=== PATIENT | male | born 1955 | race Caucasian/White ===

== ENCOUNTER 2019-04-02 12:12 | Inpatient (IN) | payer OTHER ==
[2019-04-02 12:40] VITALS: BMI 26.4
[2019-04-02] MEDS ORDERED: methylPREDNISolone SOD SUCC 125 MG/2 ML VIAL IVP ONE (12:55)
[2019-04-02] MEDS ORDERED: ACETAMINOPHEN 500 MG TABLET PO PRN (12:58)
[2019-04-02] MEDS ORDERED: AZITHROMYCIN 500 MG in 0.9 % SODIUM CHLORIDE 250 ML IV SCH (13:00)
--- NOTE | 2019-04-02 13:01 | History and Physical Report ---
History of Present Illnes - History of Present Illness Reason for Visit: dyspnea History of Present Illness: 63yo male with 4-5 day history of breathing difficulties. Having some SOB, wheezing, coughing productive of yellow phlegm, no blood noted. No chest pain noted. patient stated he has a mild sore throat secondary to coffee. Patient is had some mild clear nasal drainage noted. Patient has had some mild low-grade fever but no chills appreciated. Patient does have a history of COPD. Patient did is been having increasing shortness of breath dyspnea related to his illness. Patient stated he did quit smoking approximately three weeks ago. Patient has approximately a 50 pack a history of smoking. Patient was seen in clinic and not able to get SAO2 > 88%. Admitted for further care and treatment. - Past Medical History Pulmonary: COPD - Past Surgical History Past Surgical History: Other (ORIF right hand fracture) - Past Family History Father Family History: (unkown age or cause) Mother Family History: (COPD, asthma) Brother 1 Family History: (COPD) Brother 2 Family History: (suicide) - Past Social History Smoke: # pack years (50), Quit (quit 3 weeks ag) Alcohol: None Drugs: None Lives: With Family Domestic Violence: Negative - Health Maintenance Health Maintenance: denies: Influenza Vaccine, Pneumococcal Vaccine, Colonoscopy Influenza Vaccine: No Pneumonia Vaccine: No Resuscitation Status: Resusciation Status Resuscitation Status Full Code - Unable to Obtain History Unable to Obtain: No Review of Systems - Review of Systems Constitutional: Fever, Chills. negative: Sweats, Weakness Eyes: negative: pain, vision change ENT: Nose Congestion (mild). negative: Ear Pain, Ear Discharge, Nose Pain, Nose Discharge, Mouth Pain, Mouth Swelling Respiratory: Cough, Shortness of Breath, SOB with Excertion, Sputum (yellow). negative: Hemoptysis, Pleuritic Pain Cardiovascular: negative: Chest Pain, Palpitations, Orthopnea, Paroxysmal Noc. Dyspnea Gastrointestinal: negative: Nausea, Vomiting, Abdominal Pain, Diarrhea, Constipation, Melena Genitourinary: negative: Dysuria, Frequency, Incontinence, Hematuria Musculoskeletal: negative: Neck Pain, Back Pain Skin: negative: Rash Neurological: negative: Weakness, Numbness, Incoordination, Change in Speech, Confusion, Seizures - Medications/Allergies Allergies/Adverse Reactions: Allergies Allergy/AdvReac Type Severity Reaction Status Date / Time No Known Drug Allergies Allergy Verified 04/02/19 22:09 Current Inpatient Medications: Current Inpatient Medications Acetaminophen (Tylenol Extra Strength) 500 mg PO Q4H PRN PRN Reason: Fever >101 Stop: 05/02/19 12:57 Albuterol/Ipratropium (Duoneb) 3 ml NEB Q4 TAMIKA Stop: 05/02/19 12:59 Enoxaparin Sodium (Lovenox) 30 mg SQ DAILY TAMIKA Stop: 04/17/19 08:59 Sodium Chloride (Normal Saline) 1,000 mls @ 100 mls/hr IV Q10H TAMIKA Stop: 05/02/19 12:59 Azithromycin 500 mg/ Sodium (Chloride) 250 mls @ 250 mls/hr IV Q24H TAMIKA Stop: 04/06/19 13:59 Levofloxacin/Dextrose (Levaquin) 500 mg IV DAILY [facility]END[facility] TO [facility] Stop: 04/16/19 12:59 Methylprednisolone Sodium Succinate (Solu-Medrol) 125 mg IVP NOW ONE Stop: 04/02/19 12:56 Methylprednisolone Sodium Succinate (Solu-Medrol) 80 mg IVP Q12 TAMIKA Stop: 05/03/19 08:59 Exam - Exam Vital Signs: Vital Signs (72 hours) 04/02/19 04/02/19 12:32 12:34 Temperature 98.1 F 98.1 F Pulse Rate [ 77 77 Right] Respiratory 22 22 Rate Blood Pressure 150/106 150/106 [Right Arm] O2 Sat by Pulse 89 L 89 L Oximetry General: Alert, Oriented to Person, Oriented to Place, Oriented to Time, Cooperative, Mild distress HEENT: Atraumatic, PERRLA, EOMI, Mouth Mucous membr. moist/[place], Nose Mucous membr. moist/[place] Neck: Normal Range of Motion Carotids: WNL Thyroid: WNL Lungs: Normal air movement, Speaks full Sentences, Wheezes, Rhonchi, Decreased Air Movement Cardiovascular: Regular rate, Normal S1, Normal S2, No murmurs Abdomen: Normal bowel sounds, Soft, No tenderness, No hepatospenomegaly, No masses Integumentary: Normal, [place], Warm, Dry Extremities: No clubbing, No cyanosis, No edema, Normal pulses, No tenderness/swelling Neurological: Normal gait, Normal speech, Strength Equal Bilat, Normal tone, Sensation intact, Cranial nerves 3-12 NL, Reflexes 2+ Psych/Mental Status: Mental status NL, Mood NL, Appropriate Affect, Intact Judgment Assessment/Plan - Assessment/Plan (1) COPD exacerbation Status: Acute VTE Assessment - RISK FACTOR SCORE VTE RISK FACTOR SCORES: AGE OVER 60 YEARS, ACUTE RESPIRATORY FAILURE/SEVERE COPD - RISK VTE MODERATE RISK: SCORE OF 2 (RISK PROXIMAL DVT 2-4%) PROPHYAXIS NEEDED
[2019-04-02 13:37] LABS: BASOPHILS % 0.5 % (0.0-1.5); NEUTROPHILS # 6.1 # k/uL (1.4-7.7)
[2019-04-02 13:51] LABS: eGFR (Non-African) > 60
[2019-04-02] MEDS: 0.9 % SODIUM CHLORIDE 1,000 ML IV SCH (16:27)
[2019-04-02] MEDS: IPRATROPIUM/ALBUTEROL SULFATE 3 ML AMPUL.NEB NEB SCH ×3 (16:31→20:12)
[2019-04-02] MEDS ORDERED: amLODIPine BESYLATE 5 MG TABLET PO ONE (21:57)
[2019-04-03] MEDS: IPRATROPIUM/ALBUTEROL SULFATE 3 ML AMPUL.NEB NEB SCH ×5 (01:37→16:40)
[2019-04-03] MEDS: 0.9 % SODIUM CHLORIDE 1,000 ML IV SCH (03:29)
--- NOTE | 2019-04-03 08:22 | Inpatient Progress Note ---
Subjective - Required Recertification Statement I anticipate X number of days because-include discharge plan: 1 day - Review of Systems General: Denies: Chills, Night Sweats, Fatigue Pulmonary: Dyspnea, Cough (improved) Cardiovascular: Denies: Chest Pain, Palpitations Gastrointestinal: Denies: Abdominal Pain Objective - Exam Vitals and I&O: Vital Signs Temp 98.9 F 04/03/19 06:00 Pulse 86 04/03/19 06:00 Resp 20 04/03/19 06:00 BP 144/85 04/03/19 06:00 Pulse Ox 91 L 04/03/19 06:00 Intake & Output 04/02/19 04/02/19 04/03/19 11:59 23:59 11:59 Intake Total 440 1200 Balance 440 1200 Weight 86.183 kg Intake: IV 1200 Left Forearm 1200 Oral 440 Other: Voiding Method Toilet Toilet # Voids 1 4 # Bowel Movements 0 0 General: Alert, Oriented to Person, Oriented to Place, Oriented to Time, Cooperative Neck: Supple, No JVD Lungs: Speaks full Sentences, Wheezes (bilat, but moving air better). No: Rales, Rhonchi Cardiovascular: Regular rate, Normal S1, Normal S2, No murmurs Abdomen: Normal bowel sounds, Soft, No tenderness Skin: Normal, [place], Warm, Dry - Results Results: Laboratory Results WBC 8.60 K/ul (4.00-12.00) 04/02/19 13:30 RBC 4.58 M/ul (3.90-5.20) 04/02/19 13:30 Hgb 14.9 g/dL (12.0-18.0) 04/02/19 13:30 Hct 44.3 % (37.0-53.0) 04/02/19 13:30 MCV 97.0 fl (80.0-100.0) 04/02/19 13:30 MCH 32.4 pg (28.0-34.0) 04/02/19 13:30 MCHC 33.5 g/dL (30.0-36.0) 04/02/19 13:30 RDW 13.6 % (11.3-14.3) 04/02/19 13:30 Plt Count 203 K/mm3 (130-400) 04/02/19 13:30 Neut % (Auto) 70.0 % (39.0-79.0) 04/02/19 13:30 Lymph % (Auto) 20.2 % (16.0-50.0) 04/02/19 13:30 [place] % (Auto) 7.4 % (0.0-11.0) 04/02/19 13:30 Eos % (Auto) 1.9 % (0.0-6.8) 04/02/19 13:30 Baso % (Auto) 0.5 % (0.0-1.5) 04/02/19 13:30 Neut # (Auto) 6.1 # k/uL (1.4-7.7) 04/02/19 13:30 Lymph # (Auto) 1.8 # k/uL (0.6-4.0) 04/02/19 13:30 [place] # (Auto) 0.6 # k/uL (0.0-0.9) 04/02/19 13:30 Eos # (Auto) 0.2 # k/uL (0.0-0.6) 04/02/19 13:30 Baso # (Auto) 0.0 # k/uL (0.0-0.5) 04/02/19 13:30 Sodium 143 mmol/L (137-145) 04/02/19 13:30 Potassium 4.2 mmol/L (3.5-5.1) 04/02/19 13:30 Chloride 99 mmol/L (98-107) 04/02/19 13:30 Carbon Dioxide 37 mmol/L (22-30) H 04/02/19 13:30 Anion Gap 11.2 04/02/19 13:30 BUN 12 mg/dL (9-20) 04/02/19 13:30 Creatinine 0.87 mg/dL (0.66-1.25) 04/02/19 13:30 Estimated Creat Clear 107 04/02/19 13:30 Est GFR ( Amer) > 60 (60-) 04/02/19 13:30 Est GFR (Non-Af Amer) > 60 (60-) 04/02/19 13:30 Glucose 160 mg/dL (74-106) H 04/02/19 13:30 Calcium 9.0 mg/dL (8.4-10.2) 04/02/19 13:30 Total Bilirubin 0.3 mg/dL (0.2-1.3) 04/02/19 13:30 AST 38 U/L (15-46) 04/02/19 13:30 ALT 40 U/L (13-69) 04/02/19 13:30 Alkaline Phosphatase 94 U/L (38-126) 04/02/19 13:30 Total Protein 6.7 g/dL (6.3-8.2) 04/02/19 13:30 Albumin 4.0 g/dL (3.5-5.0) 04/02/19 13:30 Assessment/Plan - Assessment/Plan (1) COPD exacerbation Status: Acute Current Visit: Yes Assessment: Will discontinue IV fluids, change antibiotic to po, will ambulate and try to wean off oxygen.
[2019-04-03] MEDS ORDERED: LevoFLOXacin 500 MG TABLET PO SCH (09:00)
[2019-04-03] MEDS ORDERED: ENOXAPARIN SODIUM 30 MG/0.3 ML DISP.SYRIN SQ SCH (09:00)
[2019-04-03] MEDS ORDERED: methylPREDNISolone SOD SUCC 40 MG/ML VIAL IVP SCH (09:00)
[2019-04-03 18:20] VITALS: BP 117/71
[2019-04-03] MEDS ORDERED: PNEUMOCOCCAL 23-VAL IM ONE (19:38)
--- NOTE | 2019-04-04 12:39 | Diagnostic Imaging Report ---
NEIL COKER [facility] [id number] [facility] [address] [address] Report Submission Date: Apr 02, 2019 7:00:47 PM CDT Patient Study Name: SHAHZAD SHERIFF Date: Apr 02, 2019 6:05:21 PM CDT Modality Type: DX Gender: M Description: HAND 3 VIEWS OR MORE : 57 Institution: [facility] Physician: NEIL COKER HISTORY: 63-year-old male with right hand pain after injury 3 weeks ago, limited range of motion. COMPARISON: None available. TECHNIQUE: Three views of the right hand were performed. IMPRESSION: 1. No acute fracture of the right hand. 2. Old healed fracture of the fifth metacarpal neck. 3. 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 4. Soft tissue calcifications dorsal to the third metacarpal bone suggestive of old soft tissue injury. 5. Question of abnormal dorsal lunate tilt. Correlate for volar intercalated segmental instability. Electronically signed on Apr 02, 2019 7:00:47 PM CDT by: Frandy BOYER
--- NOTE | 2019-04-04 12:59 | Diagnostic Imaging Report ---
NEIL COKER [facility] [address] [facility] [address] [address] Report Submission Date: Apr 02, 2019 2:21:01 PM CDT Patient Study Name: SHAHZAD SHERIFF Date: Apr 02, 2019 1:57:34 PM CDT Modality Type: DX Gender: M Description: CHEST 2VIEW : 57 Institution: [facility] Physician: NEIL COKER Examination: PA and lateral chest. History: Evaluate lung robles. Comparison exam: None provided. Findings: PA and lateral views of the chest demonstrates a normal cardiac and mediastinal silhouette. Chronic interstitial changes. No focal infiltrate. No blunting of the costophrenic margins. Scattered granuloma. Osseous structures are appropriate for age. Impression: Chronic interstitial changes. No acute pulmonary process. Electronically signed on Apr 02, 2019 2:21:01 PM CDT by: Ede BOYER
--- NOTE | 2019-04-07 10:32 | Discharge Summary ---
Discharge Summary - Discharge [facility] Admission Date: 04/02/19 (Acute) Discharge Date: 04/03/19 (Home) Discharge To: Home Condition at Discharge: Stable Home Medications: Ambulatory Orders Medication Instructions Recorded Albuterol Sulfate [Proair Hfa] 8.5 gm IH Q4 PRN #1 inhaler 04/03/19 Ipratropium/Albuterol Sulfate 3 ml NEB Q4 PRN #30 ampul.neb 04/03/19 [Duoneb] Prednisone 10 mg PO DIRECTED #20 tablet 04/03/19 levoFLOXacin [Levaquin] 500 mg PO DAILY #7 tablet 04/03/19 Consultations this Visit: None Allergies/Adverse Reactions: Allergies Allergy/AdvReac Type Severity Reaction Status Date / Time No Known Drug Allergies Allergy Verified 04/02/19 22:09 Discharge Summary: Patient has be started on supplemental oxygen in order to maintain as SaO2 greater than 92%. Patient was started on high flow nebulization treatments with DuoNeb four hours and IV Solu-Medrol. Patient was felt to possibly have a bronchitis was started on antibiotic therapy. After the first 24 hours of admission patient did have improvement in his breathing. Patient however was still wheezing and all lobes of his lungs and was still having some shortness of breath with ambulation. However that evening patient stated he was feeling much better. Patient will have minimal wheezing with fourth expiration. Patient was ambulating in the [place] without the need of any supplemental oxygen.patient was wanted to be discharged home. Patient was subsequently discharged home in stable condition. - Final Diagnosis (1) COPD exacerbation Problems: improved
== END 2019-04-03 19:45 | disposition home or self-care (01) | DRG 192 ==
LOC: SOUTH 12:12
PROVIDERS: ADMIT Family Medicine; ATTEND Family Medicine
DX: J44.1 Chronic obstructive pulmonary disease with (acute) exacerbation (principal); Z87.891 Personal history of nicotine dependence; Z82.5 Family history of asthma and other chronic lower respiratory diseases
CPT/HCPCS: 36415; 71046; 73130; 80053; 85025; 87040; 90732; 94640; 94760; J0456; J1650; J1956; J2920; J2930; J7030; J7050; 99221; 99231; J1030; S1016